=== PATIENT | female | born 1990 | race Caucasian/White ===

== ENCOUNTER 2019-05-25 10:30 | Emergency (ER) | payer MEDICAID ==
[~2019-05-25 10:30] MED LIST: HYDR-4383 PO; NO HOME MEDS; ONDA8TAB9 PO; OXYC-145 PO
[2019-05-25 10:37] VITALS: BP 140/94
[2019-05-25 11:15] LABS: CLARITY,URINE SLIGHTLY CLOUDY (Clear); COLOR,URINE STRAW (Yellow); GLUCOSE, URINE NEGATIVE (Neg); KETONES,URINE NEGATIVE (Neg); LEUKOCYTE ESTERASE ,URINE SMALL (Neg); NITRITES, URINE NEGATIVE (Neg); OCCULT BLOOD,URINE LARGE (Neg); PROTEIN,URINE NEGATIVE (Neg); UROBILINOGEN,URINE 0.2 E.U/dL (0.2-1.0)
[2019-05-25 11:21] LABS: URINE HCG NEGATIVE (NEG)
[2019-05-25 11:23] LABS: UA COLLECTION TYPE CLN CATCH MIDSTREAM
[2019-05-25 11:24] LABS: BACTERIA,URINE 1+ /HPF (Neg); RBC,URINE 20-50 /HPF (0-2); SQUAMOUS EPITHELIAL CELL,UR MODERATE /LPF (FEW); WBC,URINE 0-4 /HPF (0-4)
== END 2019-05-25 15:00 | disposition left against medical advice (07) ==
LOC: ER 10:31
DX: R10.9 Unspecified abdominal pain (principal); Z53.21 Procedure and treatment not carried out due to patient leaving prior to being seen by health care provider
CPT/HCPCS: 81001; 81025; 87088; 93005

== ENCOUNTER 2019-06-22 14:08 | Emergency (ER) | payer MEDICAID ==
[~2019-06-22] VITALS: Ht 167.6 cm; Wt 90.0 kg
[2019-06-22 14:22] VITALS: BP 148/98
[2019-06-22] MEDS ORDERED: HYDROcodone/acetaminophen 10/325mg tab PO ONE (14:40)
[2019-06-22] MEDS ORDERED: PENI500T2 PO (14:41)
== END 2019-06-22 15:09 | disposition home or self-care (01) ==
LOC: ER 14:08
DX: K02.9 Dental caries, unspecified (principal); K08.89 Other specified disorders of teeth and supporting structures; F41.9 Anxiety disorder, unspecified; G43.909 Migraine, unspecified, not intractable, without status migrainosus; Z87.442 Personal history of urinary calculi; Z56.0 Unemployment, unspecified; Z79.899 Other long term (current) drug therapy
CPT/HCPCS: 99283

== ENCOUNTER 2020-06-03 17:16 | Emergency (ER) | payer MEDICAID ==
--- NOTE | 2020-06-03 17:30 | NUR ---
PT LEFT HAROON VICK, HAS A PICC LINE AND NEEDS ABX FOR INFECTION. AFTER GETTING AN EKG, PT DECIDES TO GO TO [facility] SINCE ALL HER RECORDS ARE OVER THERE. INSTRUCT PT THAT IT IS LIFE AND THAT SHE IS SEEN AND GIVEN ABX. PT STATES HER SISTER IS OUT IN THE PARKING LOT IN HER CAR AND WILL TAKE PT OVER TO [facility] NOW.
== END 2020-06-03 18:09 | disposition left against medical advice (07) ==
LOC: ER 17:20
DX: R42 Dizziness and giddiness (principal); Z53.21 Procedure and treatment not carried out due to patient leaving prior to being seen by health care provider

== ENCOUNTER 2022-10-21 12:51 | Emergency (ER) | payer MEDICAID ==
[~2022-10-21] VITALS: Ht 162.6 cm; Wt 90.9 kg
[2022-10-21 13:49] LABS: BASOPHILS # (AUTO) 0.1 X10'3 (0-0.2); BASOPHILS % (AUTO) 0.6 % (0-1); EOSINOPHILS % (AUTO) 0.3 % (0-6); HEMATOCRIT 46.7 % (35.0-45.0); HEMOGLOBIN 15.6 g/dl (12.0-16.0); LYMPHOCYTES # (AUTO) 1.9 X10'3 (1.1-4.8); LYMPHOCYTES % (AUTO) 15.8 % (21-51); MEAN CORPUSCULAR HEMOGLOBIN 27.9 PG (27.0-31.0); MEAN CORPUSCULAR HGB CONC 33.5 g/dL (33.0-36.5); MEAN CORPUSCULAR VOLUME 83.2 FL (78-98); MEAN PLATELET VOLUME 8.9 FL (7.4-10.4); MONOCYTES # (AUTO) 0.2 X10'3 (0-0.9); MONOCYTES % (AUTO) 1.5 % (2-12); NEUTROPHILS # (AUTO) 9.6 X10'3 (1.8-7.7); NEUTROPHILS % (AUTO) 81.8 % (42-75); PLATELET COUNT 341 X10'3 (140-440); RED BLOOD COUNT 5.62 X10'6 (4.20-5.60); RED CELL DISTRIBUTION WIDTH 13.6 % (11.5-14.5); WHITE BLOOD COUNT 11.7 X10'3 (4.5-11.0)
[2022-10-21 13:50] LABS: ALANINE AMINOTRANSFERASE 33 U/L (12-78); ALBUMIN 4.6 G/DL (3.4-5.0); ALBUMIN/GLOBULIN RATIO 1.1 (1.1-1.5); ALKALINE PHOSPHATASE 83 IU/L (46-116); ANION GAP 10 (8-16); ASPARTATE AMINO TRANSFERASE 20 U/L (10-37); BILIRUBIN,TOTAL 1.1 MG/DL (0.1-1.0); BLOOD UREA NITROGEN 14 MG/DL (7-18); BUN/CREATININE RATIO 15.7 (10.0-20.0); CALCIUM 9.8 MG/DL (8.5-10.1); CHLORIDE 102 MMOL/L (99-107); CREATININE 0.89 MG/DL (0.40-0.90); GLUCOSE 129 MG/DL (70-104); POTASSIUM 3.6 MMOL/L (3.5-5.1); SODIUM 138 MMOL/L (135-145); TOTAL PROTEIN 8.9 G/DL (6.4-8.2); eGFR 73 ML/MIN
[2022-10-21] MEDS ORDERED: buprenorphine/naloxone 8mg/2mg SL tablet SL PRN (15:35)
[2022-10-21] MEDS ORDERED: ondansetron/PF 4mg/2ml inj IV ONE (15:35)
[2022-10-21] MEDS ORDERED: normal saline 1000ML IV soln IVB ONE ×2 (15:35)
[2022-10-21] MEDS ORDERED: pantoprazole 40 MG vial IV ONE (15:35)
[2022-10-21] MEDS ORDERED: pantoprazole 40 MG/NS 100ML add-vantage BAG IV ONE (15:45)
[2022-10-21] MEDS ORDERED: buprenorphine/naloxone 8MG-2MG SUBlingual film SL PRN (17:20)
[2022-10-21 18:17] VITALS: BP 128/79
--- NOTE | 2022-10-21 19:00 | NUR ---
pt side effect to suboxone "anxiety" informed. new med order recieved.
[2022-10-21] MEDS ORDERED: LORazepam 2 mg/ml vial IV ONE ×2 (19:05→20:30)
--- NOTE | 2022-10-21 20:52 | NUR ---
pt self disconnected iv fluid and removed iv cath. left wo dc inst and paperwork. informed
== END 2022-10-21 20:56 | disposition home or self-care (01) ==
LOC: ER 12:51
DX: R53.81 Other malaise (principal); F11.10 Opioid abuse, uncomplicated; G43.909 Migraine, unspecified, not intractable, without status migrainosus; F17.200 Nicotine dependence, unspecified, uncomplicated; Z88.1 Allergy status to other antibiotic agents; Z56.0 Unemployment, unspecified
CPT/HCPCS: 36415; 71045; 80053; 83880; 84484; 85025; 93005; 96361; 96365; 96375; 96376; 99285; C9113; J2060; J2405; J7030; J7040

== ENCOUNTER 2023-06-03 13:26 | Emergency (ER) | payer MEDICAID ==
[~2023-06-03] VITALS: Ht 167.6 cm; Wt 96.5 kg
[2023-06-03 13:36] VITALS: TEMP 98
[2023-06-03] MEDS ORDERED: ketorolac trometh inj. 60 MG/2 ML VIAL IM ONE (15:35)
[2023-06-03] MEDS ORDERED: HYDROcodone/acetaminophen 5mg/325mg tablet PO ONE (15:35)
[2023-06-03] MEDS ORDERED: ondansetron 4mg rapidly disintigrating tab PO ONE (15:35)
[2023-06-03 16:49] LABS: URINE HCG NEGATIVE (NEG)
[2023-06-03 16:53] LABS: CLARITY,URINE CLOUDY (Clear); COLOR,URINE ORANGE (Yellow)
[2023-06-03 17:03] LABS: URINE AMPHETAMINE SCREEN NEGATIVE (Neg); URINE BARBITUATE SCREEN NEGATIVE (Neg); URINE BENZODIAZEPINES SCREEN NEGATIVE (Neg); URINE CANNABINOID SCREEN NEGATIVE (Neg); URINE COCAINE SCREEN NEGATIVE (Neg); URINE METHADONE SCREEN POSITIVE (Neg); URINE OPIATE SCREEN NEGATIVE (Neg); URINE PHENCYCLIDINE SCREEN NEGATIVE (Neg)
[2023-06-03 17:13] LABS: BACTERIA,URINE 3+ /HPF (Neg); SQUAMOUS EPITHELIAL CELL,UR MANY /LPF (FEW); WBC,URINE TNTC /HPF (0-4)
[2023-06-03 17:14] LABS: TRANSITIONAL EPI CELLS,URINE FEW /HPF
[2023-06-03 17:16] LABS: UA COLLECTION TYPE NON-SPECIFIED
[2023-06-03 17:30] LABS: BASOPHILS # (AUTO) 0.1 X10'3 (0-0.2); BASOPHILS % (AUTO) 0.8 % (0-1); EOSINOPHILS # (AUTO) 0.2 X10'3 (0-0.9); EOSINOPHILS % (AUTO) 1.5 % (0-6); HEMATOCRIT 42.6 % (35.0-45.0); HEMOGLOBIN 14.4 g/dl (12.0-16.0); LYMPHOCYTES # (AUTO) 3.4 X10'3 (1.1-4.8); LYMPHOCYTES % (AUTO) 29.4 % (21-51); MEAN CORPUSCULAR HEMOGLOBIN 28.8 PG (27.0-31.0); MEAN CORPUSCULAR HGB CONC 33.7 g/dL (33.0-36.5); MEAN CORPUSCULAR VOLUME 85.3 FL (78-98); MEAN PLATELET VOLUME 8.6 FL (7.4-10.4); MONOCYTES # (AUTO) 0.4 X10'3 (0-0.9); MONOCYTES % (AUTO) 3.3 % (2-12); NEUTROPHILS # (AUTO) 7.6 X10'3 (1.8-7.7); PLATELET COUNT 317 X10'3 (140-440); RED CELL DISTRIBUTION WIDTH 13.3 % (11.5-14.5); WHITE BLOOD COUNT 11.7 X10'3 (4.5-11.0)
[2023-06-03 17:41] LABS: ALANINE AMINOTRANSFERASE 28 U/L (12-78); ALBUMIN 3.6 G/DL (3.4-5.0); ALBUMIN/GLOBULIN RATIO 0.9 (1.1-1.5); ALKALINE PHOSPHATASE 80 IU/L (46-116); ANION GAP 11 (8-16); ASPARTATE AMINO TRANSFERASE 16 U/L (10-37); BILIRUBIN,TOTAL 0.6 MG/DL (0.1-1.0); BLOOD UREA NITROGEN 11 MG/DL (7-18); BUN/CREATININE RATIO 14.1 (10.0-20.0); CALCIUM 8.7 MG/DL (8.5-10.1); CHLORIDE 102 MMOL/L (99-107); CREATININE 0.78 MG/DL (0.40-0.90); GLUCOSE 90 MG/DL (70-104); LIPASE 32 U/L (16-77); POTASSIUM 3.5 MMOL/L (3.5-5.1); SODIUM 137 MMOL/L (135-145); TOTAL CARBON DIOXIDE 24.3 MMOL/L (24-32); TOTAL PROTEIN 7.7 G/DL (6.4-8.2); eCRCL 95 ML/MIN; eGFR 85 ML/MIN
[2023-06-03 19:55] LABS: CLARITY,URINE CLOUDY (Clear); COLOR,URINE ORANGE (Yellow); UA COLLECTION TYPE CLN CATCH MIDSTREAM
[2023-06-03 20:09] LABS: MUCUS STRANDS MANY /LPF (Neg); SQUAMOUS EPITHELIAL CELL,UR MANY /LPF (FEW); TRANSITIONAL EPI CELLS,URINE FEW /HPF
[2023-06-03 20:10] LABS: BACTERIA,URINE 3+ /HPF (Neg); WBC,URINE TNTC /HPF (0-4)
[2023-06-03 20:11] LABS: WBC CLUMPS,URINE FEW /HPF (NEGATIVE)
[2023-06-03 22:11] LABS: CLARITY,URINE CLOUDY (Clear); COLOR,URINE ORANGE (Yellow); UA COLLECTION TYPE STRAIGHT CATH
[2023-06-03 22:12] LABS: MUCUS STRANDS MANY /LPF (Neg)
[2023-06-03 22:16] LABS: RENAL CELLS, URINE FEW /HPF; SQUAMOUS EPITHELIAL CELL,UR MANY /LPF (FEW); TRANSITIONAL EPI CELLS,URINE FEW /HPF; WBC CLUMPS,URINE FEW /HPF (NEGATIVE); WBC,URINE 20-30 /HPF (0-4)
[2023-06-03 22:19] LABS: BACTERIA,URINE 3+ /HPF (Neg)
[2023-06-03] MEDS ORDERED: CefTRIAXone 250MG inj IM ONE (22:45)
[2023-06-03] MEDS ORDERED: CEPH-585 PO (22:48)
[2023-06-03] MEDS ORDERED: CefTRIAXone 1000mg IM Kit (w/lidocaine diluent) IM ONE (22:55)
[2023-06-03 23:35] VITALS: BP 118/90; PULSE 77; RESP 16; O2SAT 100
== END 2023-06-03 23:33 | disposition home or self-care (01) ==
LOC: ER 13:27
DX: N39.0 Urinary tract infection, site not specified (principal); I11.0 Hypertensive heart disease with heart failure; F17.200 Nicotine dependence, unspecified, uncomplicated
CPT/HCPCS: 36415; 74176; 80053; 80305; 81001; 81025; 83690; 85025; 96372; 99285; J0696; J1885; A4353; C1758

== ENCOUNTER → 2023-09-03 | Emergency (ER) | payer MEDICAID ==
[~2023-09-03] VITALS: Ht 167.6 cm; Wt 90.6 kg
[~2023-09-03] MED LIST changes: +CEPH-585 PO
[2023-09-03 10:43] VITALS: BP 113/75; PULSE 86; RESP 18; TEMP 98.3; O2SAT 98
[2023-09-03 11:30] LABS: BILIRUBIN,URINE NEGATIVE (Neg); CLARITY,URINE SLIGHTLY CLOUDY (Clear); COLOR,URINE YELLOW (Yellow); GLUCOSE, URINE NEGATIVE (Neg); KETONES,URINE NEGATIVE (Neg); LEUKOCYTE ESTERASE ,URINE NEGATIVE (Neg); NITRITES, URINE NEGATIVE (Neg); OCCULT BLOOD,URINE LARGE (Neg); PROTEIN,URINE NEGATIVE (Neg)
[2023-09-03 11:30] LABS: BASOPHILS # (AUTO) 0.1 X10'3 (0-0.2); BASOPHILS % (AUTO) 1.4 % (0-1); EOSINOPHILS # (AUTO) 0.1 X10'3 (0-0.9); EOSINOPHILS % (AUTO) 1.7 % (0-6); HEMATOCRIT 39.3 % (35.0-45.0); HEMOGLOBIN 13.4 g/dl (12.0-16.0); LYMPHOCYTES # (AUTO) 1.5 X10'3 (1.1-4.8); LYMPHOCYTES % (AUTO) 24.4 % (21-51); MEAN CORPUSCULAR HEMOGLOBIN 29.2 PG (27.0-31.0); MEAN CORPUSCULAR HGB CONC 34.2 g/dL (33.0-36.5); MEAN CORPUSCULAR VOLUME 85.4 FL (78-98); MEAN PLATELET VOLUME 9.5 FL (7.4-10.4); MONOCYTES # (AUTO) 0.4 X10'3 (0-0.9); MONOCYTES % (AUTO) 6.1 % (2-12); NEUTROPHILS % (AUTO) 66.4 % (42-75); PLATELET COUNT 211 X10'3 (140-440); RED BLOOD COUNT 4.61 X10'6 (4.20-5.60); RED CELL DISTRIBUTION WIDTH 13.4 % (11.5-14.5)
[2023-09-03 11:33] LABS: UA COLLECTION TYPE CLN CATCH MIDSTREAM
[2023-09-03 11:36] LABS: RBC,URINE 50-100 /HPF (0-2); SQUAMOUS EPITHELIAL CELL,UR FEW /LPF (FEW); WBC,URINE 0-4 /HPF (0-4)
[2023-09-03 11:37] LABS: BACTERIA,URINE NONE SEEN /HPF (Neg)
== END | disposition left against medical advice (07) ==
LOC: ER 10:30
DX: O20.9 Hemorrhage in early pregnancy, unspecified (principal); O26.891 Other specified pregnancy related conditions, first trimester; R10.9 Unspecified abdominal pain; Z53.21 Procedure and treatment not carried out due to patient leaving prior to being seen by health care provider; Z3A.01 Less than 8 weeks gestation of pregnancy
CPT/HCPCS: 36415; 81001; 84702; 85025; 86870; 86885; 86900; 86901; 86905; 99281

== ENCOUNTER 2024-02-18 22:09 | Emergency (ER) | payer MEDICAID ==
[~2024-02-18] VITALS: Ht 162.6 cm; Wt 84.1 kg
[2024-02-19] MEDS: ondansetron 4mg rapidly disintigrating tab PO ONE (00:39)
[2024-02-19] MEDS: ibuprofen tablet 400 MG TABLET PO ONE (00:41)
[2024-02-19] MEDS: acetaminophen 325mg tablet PO ONE (00:41)
[2024-02-19] MEDS: HYDROcodone/acetaminophen 5mg/325mg tablet PO ONE (00:42)
[2024-02-19 03:42] VITALS: BP 141/93; PULSE 78; RESP 18; TEMP 98.1; O2SAT 100
== END 2024-02-19 03:45 | disposition home or self-care (01) ==
LOC: EEVIPCON 22:10 → ER 22:10
DX: S00.83XA Contusion of other part of head, initial encounter (principal); G43.909 Migraine, unspecified, not intractable, without status migrainosus; F41.9 Anxiety disorder, unspecified; Z88.1 Allergy status to other antibiotic agents; Z79.2 Long term (current) use of antibiotics; Z79.899 Other long term (current) drug therapy; Z87.440 Personal history of urinary (tract) infections; Y08.89XA Assault by other specified means, initial encounter; Y93.89 Activity, other specified; Y92.89 Other specified places as the place of occurrence of the external cause; Y99.8 Other external cause status
CPT/HCPCS: 70450; 70486; 71250; 72125; 74176; 93005; 99285

== ENCOUNTER 2024-05-05 09:34 | Emergency (ER) | payer MEDICAID ==
[~2024-05-05] VITALS: Ht 162.6 cm; Wt 86.7 kg
[2024-05-05 09:43] VITALS: TEMP 98.6
[2024-05-05] MEDS ORDERED: MELO-100 PO (11:11)
[2024-05-05] MEDS: ketorolac trometh 30MG/ML vial 30 MG/ML VIAL IM ONE (11:28)
[2024-05-05 12:02] VITALS: BP 116/77; PULSE 80; RESP 18; O2SAT 97
== END 2024-05-05 12:06 | disposition home or self-care (01) ==
LOC: ER 09:34
DX: G43.909 Migraine, unspecified, not intractable, without status migrainosus (principal); Z88.1 Allergy status to other antibiotic agents; Z87.440 Personal history of urinary (tract) infections
CPT/HCPCS: 96372; 99283; J1885

== ENCOUNTER 2024-09-20 07:28 | Emergency (ER) | payer MEDICAID ==
[~2024-09-20] VITALS: Ht 162.6 cm; Wt 85.3 kg
[~2024-09-20 07:28] MED LIST changes: -CEPH-585 PO; +MELO-100 PO
[2024-09-20 07:29] VITALS: TEMP 97.7
[2024-09-20] MEDS ORDERED: BETA15CR4 TOP (08:16)
--- NOTE | 2024-09-20 08:16 | Physician Documentation ---
History of Present Illness ~ General Chief Complaint: Rash Stated Complaint: "SOMETHING SPREADING ALL OVER MY BODY" Time Seen by MD: 08:01 Primary Medical Doctor: NONE History of Present Illness Initial Comments This is a pleasant 33-year-old female who comes in for evaluation of rash the cup expressed in the last month. Started on bilateral upper extremities, nonspecific today scalp, face, bilateral ears, back. No obvious trigger provocation. The particular palliating or aggravating factors were elicited with the patient. Did not attempt to treat it. Today where she noticed a spread to her face she got scared to the emergency department. This never happened past. Denies any other complaints. No new shampoo, no new detergents, no pets, no travel. No concern for tobacco, alcohol or illicit substances use. No lesions in mouth, anus, vagina. Medication Reconciliation Allergies: Coded Allergies: levofloxacin (Verified Allergy, Severe, THROAT SWELLS, 05/05/24) Scheduled Hydrocodone/Acetaminophen ([place] 5-325 Tablet), 1-2 TABLET PO Q4H Meloxicam* (Meloxicam*), 1 TAB PO DAILY Ondansetron (Zofran Odt), 1 TABLET PO Q8H Ondansetron (Zofran Odt), 1 TABLET PO Q8H Oxycodone HCl/Acetaminophen (Percocet 5-325 mg Tablet), 1 TABLET PO TID Miscellaneous Medications Home Med List (No Home Medications), (Reported) Past Medical History Past Medical History: Migraine, Endocarditis, Heart Valve Disease, Kidney Stones, UTI, Anxiety Past Surgical History: no surgical history Alcohol Use: None Drug Use: other Lives with: Spouse, Family Lives In: Home Occupation: unemployed Review of Systems ROS 10 point review of systems was performed and unless noted above in HPI is negative for acute process/complaint. Physical Exam Physical Exam Vital Signs: Temperature: 97.7, Heart Rate: 69, Respiratory Rate: 16, BP: 142/77, Pulse Oximetry: 100, Weight: 85.300 Oxygen Flow Rate: 0 Physical Exam Physical examination: GENERAL: Awake, alert, oriented, GCS 15, no apparent distress, non-toxic appearing, answers questions, follows commands appropriately. Pleasant lady examined in bed 11 HEENT: Atraumatic, normocephalic, pupils equal, extraocular muscles intact Active gross movements, sclerae anicteric, mucus membranes moist, no stridor. NECK: Midline, no JVD CARDIOVASCULAR: Good skin perfusion without evidence of pallor, mottling. PULMONARY: Nonlabored, symmetric chest rise, no audible wheezing, no accessory muscle use, no respiratory distress, speaking in full sentences. GASTROINTESTINAL: Not distended. NEUROLOGIC: Lucid with normal mental status. Normal facial symmetry. Moves all extremities symmetrically and with purpose. No truncal ataxia. Speech is fluid without evidence of dysarthria or aphasia, no focal deficits appreciated. EXTREMITIES: Acute deformities Skin: warm, dry, there are multiple small eczematous patches on her scalp, face bilateral cheeks, bilateral upper and lower extremities, back, there are blanching, no vasculitic changes, no purpura, no petechiae, no excoriations, no open wounds, no ulcerations, no bleeding or purulent discharge PSYCHIATRIC: Normal affect, normal insight, normal concentration. Focused exam: [] Progress Results/Orders Results/Orders Vital Signs 09/20/24 07:29 Temp 97.7 Pulse 69 Resp 16 B/P (MAP) 142/77 Pulse Ox 100 O2 Flow Rate 0 Medical Decision Making Findings Facility Status: ED Holds, RME process The plan was discussed with the patient, who demonstrates clear understanding of the plan and is in agreement with the plan unless otherwise noted in the chart. All questions have been answered, all concerns were addressed unless otherwise documented. I was available throughout their ED stay for frequent reassessment and questions. Differential Diagnoses (considered and possible or likely): [Eczema, psoriasis, erysipelas, impetigo, cellulitis, unlikely to be carbuncle/abscess, clinically not consistent with vasculitis, Jarod Jose Luis syndrome, TEN] ??Differential Diagnoses (considered and unlikely, not requiring evaluation currently): [See above] [facility] Data Please see HPI for the following: Independent Historians and external Records Review. Historian: [Patient] Independent Historians: ?[Non] Medication Management: [Reviewed medication list] Social History and determinants: [Reviewed] Please see the body of the note for the following: Any independent interpretations of ECG, imaging studies. All vitals signs/haemodynamics, ordered tests were independently reviewed and interpreted by myself. Nursing triage complaint and vitals reviewed, additional nursing notes were reviewed as available and I agree unless otherwise noted or documented in contradiction in the chart Vital Signs: Independently reviewed Labs: Independently interpreted Imaging: Independently interpreted Old Medical Records: Independently reviewed, see HPI for relevant summary and information Pulse Oximetry: [98%] interpreted as [normal on room air] by me Additionally notably showing: [Hemodynamically stable] Tests considered but not ordered include: [Hematologic workup and imaging has been considered but does not appear to be necessary given clinical nature of diagnosis] Social Determinants of Health Impact: Patient was evaluated in [facility] [place] access to healthcare due to below par ratio of patient to medical providers. [] Comorbid Conditions Impacting Present Evaluation and Care/Treatment: [None known] Management Discussions with other Healthcare Providers: [None] Treatment and Disposition Medication Management (Given or considered): []. See EMR for details Consideration for Hospitalization/Escalation/Deescalation of Care: Admission for observation has been considered, [however the patient is able to tolerate p.o., their symptoms are controlled, they are able to rely on oral medications, and their chief complaint/diagnosis can be managed on outpatient basis.] ?ED Course:?[No clinical deterioration. Provided patient's dictation regarding need to follow-up with the dermatology appointment] ?Shared decision making:?[Patient is hemodynamically stable for discharge home with follow with their primary care provider. [ ] Specific and cautious return precautions provided and discussed with full understanding. Any incidental findings were also discussed and follow up recommendations given. [] All questions answered. Patient/family were able to verbalize back return precautions. Patient/family agree to plan. Copies of imaging and laboratory studies were provided.] Code status:?FULL Please see the full Electronic Medical Record for full details of nursing do cumentation, medications list, other records of complete past medical history and conditions, vital signs, laboratory studies, and any radiologic study interpretations by radiologists. Portions of this note were completed using [employer] dictation software and as a result there may exist minor errors in spelling. I have reviewed elements of past family and social history and agree as included in note. Departure Disposition: 01 HOME / SELF CARE / HOMELESS Impression: Primary Impression: Rash Condition: Stable Discharge Instructions: Rash, Adult Additional Instructions: Please follow-up with the PCP and obtain referral to glass cutter helper specialist Referrals: NO PRIMARY CARE PROVIDER (PCP) Prescriptions Betamethasone Dipropionate (Betamethasone Dipropionate) 0.05 % Cream..g. 1 APPLIC TOP Q12H for 14 Days, #15 GM 0 Refills apply to affected area(s) Prov: SEVERO BUCKNER DO 09/20/24 Education Educated: Patient Educated regarding: diagnosis, treatment, prognosis, need for follow up Signature Scribe Signature: No scribe Attestation: This note accurately reflects clinical decisions, work performed by myself, DO SITA Reynolds NICHOLAS M DO September 20, 2024 08:16
[2024-09-20 08:32] VITALS: BP 127/74; PULSE 66; RESP 14; O2SAT 98
== END 2024-09-20 08:35 | disposition home or self-care (01) ==
LOC: ER 07:28
DX: R21 Rash and other nonspecific skin eruption (principal); G43.909 Migraine, unspecified, not intractable, without status migrainosus; F41.9 Anxiety disorder, unspecified; Z88.1 Allergy status to other antibiotic agents; Z79.899 Other long term (current) drug therapy; Z87.442 Personal history of urinary calculi; Z56.0 Unemployment, unspecified
CPT/HCPCS: 99283

== ENCOUNTER 2025-02-27 06:18 | Emergency (ER) | payer MEDICAID ==
[~2025-02-27] VITALS: Ht 162.6 cm; Wt 84.5 kg
[~2025-02-27 06:18] MED LIST changes: +BETA15CR4 TOP
--- NOTE | 2025-02-27 06:40 | Physician Documentation ---
History of Present Illness Chief Complaint: Flank Pain Stated Complaint: GENERAL Time Seen by MD: 06:32 Primary Medical Doctor: NONE Source: patient (8) HPI Patient comes to the emergency department for evaluation of right-sided flank pain. She has a history of both pyelonephritis and kidney stones, reports that she had gradual onset of right-sided posterior flank pain three days ago which became worse over time, radiating to the front. This has been accompanied by nausea, but no vomiting or fever. She denies dysuria but has urgency and frequency and some hematuria. She states that it feels more like kidney stones then pyelo to her. Medication Reconciliation Allergies: Coded Allergies: levofloxacin (Verified Allergy, Severe, THROAT SWELLS, 02/27/25) morphine (Verified Allergy, Unknown, rash, 02/27/25) Scheduled Betamethasone Dipropionate (Betamethasone Dipropionate), 1 APPLIC TOP Q12H Hydrocodone/Acetaminophen ([place] 5-325 Tablet), 1-2 TABLET PO Q4H Meloxicam* (Meloxicam*), 1 TAB PO DAILY Ondansetron (Zofran Odt), 1 TABLET PO Q8H Ondansetron (Zofran Odt), 1 TABLET PO Q8H Oxycodone HCl/Acetaminophen (Percocet 5-325 mg Tablet), 1 TABLET PO TID Miscellaneous Medications Home Med List (No Home Medications), (Reported) Past Medical History Past Medical History: Migraine, Endocarditis, Heart Valve Disease, Kidney Stones, UTI, Anxiety Past Surgical History: no surgical history Smoking Status: Current every day smoker Alcohol Use: None Drug Use: none (Sober) Lives with: Spouse, Family Lives In: Home Occupation: unemployed Review of Systems All Other Systems at this time: Reviewed and Negative (Other than a few scattered skin lesions over the past few) Physical Exam Vital Signs: Temperature: 97.0, Source: Temporal, Heart Rate: 86, Respiratory Rate: 20, BP: 149/91, Pulse Oximetry: 99, Weight: 84.500 Oxygen Flow Rate: 0 Physical Exam General: Pt is awake, alert, oriented x4 in mild distress and well appearing. Head: Normocephalic and atraumatic. Eyes: Conjunctiva normal. ENT: Mucous membranes moist. Neck: Supple. Chest: Clear to auscultation bilaterally, without rales, rhonchi, or wheezes. There is no accessory muscle use or retractions. Cardiac: Regular rate and rhythm without murmurs, gallops or rubs. Palpation of the chest wall is normal. Abd: Soft, nondistended, mildly tender in epigastrium/RUQ/RLQ, with normoactive bowel sounds. No guarding or rebound. Back: Pt has tenderness to light palpation over the right and left paraspinal musculature over CVA area down to the lumbar area. Questionable R CVA tenderness to percussion Extremities: Within normal limits without cyanosis, clubbing, or edema. Skin: [place], warm and dry with no significant rash appreciated. Neuro: Cranial nerves II-XII grossly intact. The gait is normal. Progress Results/Orders Results/Orders Orders - BAYRON ROMAN MD Urinalysis, Cult If Indicated (02/27/25 06:31) Vital Signs 02/27/25 06:25 Temp 97.0 Pulse 86 Resp 20 B/P (MAP) 149/91 Pulse Ox 99 O2 Flow Rate 0 Medical Decision Making Additional Comments Patient presenting with flank pain, concern for cystitis versus nephrolithiasis. However, on examination she has quite a lot of muscular tenderness throughout, and this may be a musculoskeletal etiology. Her urinalysis was rejected for culture, but has few bacteria even on a sample with a large amount of squamous epithelial cells, making UTI less likely. However, patient has urgency and hematuria, therefore will be treated for urinary tract infection and another culture will be attempted before she leaves. Interstitial cystitis also a possibility. No evidence for obstructive uropathy. Patient is stable, no evidence for pyelonephritis, no . She will be discharged with antibiotics, she is encouraged to follow up with a clinic or PMD for recheck, understands to return to the emergency department for any worsening of her symptoms or other concerns. Departure Time of Disposition: 09:12 Disposition: HOME / SELF CARE / HOMELESS Impression: Primary Impression: Flank pain Qualified Codes: R10.A0 - Flank pain, unspecified side Condition: Stable Discharge Instructions: Flank Pain, Adult Additional Instructions: There is no evidence for obstructing kidney stones on ultrasound, and your urinalysis is equivocal; another specimen has been sent to see if the culture can be obtained. I am going to go ahead and treat you for a presumed urinary tract infection given your symptoms. It would be diaz to set up follow-up this week at an urgent care for recheck, and to look up your culture results. You can continue Tylenol and ibuprofen, please take the antibiotics as prescribed. Return to the emergency department if fever, vomiting, increasing pain or blood in the urine, or any other concerns. Referrals: NO PRIMARY CARE PROVIDER (PCP) Prescriptions Sulfamethoxazole/Trimethoprim (Bactrim Ds Tablet) 800 Mg-160 Mg Tablet 1 TAB PO Q12H for 7 Days, #14 TAB Prov: BAYRON ROMAN MD 02/27/25 Education Educated: Patient Educated regarding: diagnosis, treatment Signature Scribe Signature: Attestation: BAYRON ROMAN MD Feb 27, 2025 06:40
[2025-02-27 06:58] LABS: UA COLLECTION TYPE CLN CATCH MIDSTREAM
[2025-02-27 07:02] LABS: MUCUS STRANDS FEW /LPF (Neg); SQUAMOUS EPITHELIAL CELL,UR MANY /LPF (FEW)
[2025-02-27] MEDS: ondansetron/PF 4mg/2ml inj IV ONE (07:14)
[2025-02-27] MEDS: ketorolac trometh 15mg/ml vial 15 MG/ML ML IV ONE (07:15)
[2025-02-27] MEDS: morphine 4 MG/ML inj SYRINge IV PRN (07:16)
[2025-02-27] MEDS: normal saline 1000ML IV soln IVB ONE (07:17)
[2025-02-27 07:20] LABS: CREATININE 0.79 MG/DL (0.40-0.90); TOTAL CARBON DIOXIDE 31.2 MMOL/L (24-32); eCRCL 85 ML/MIN; eGFR 82 ML/MIN
[2025-02-27 07:25] LABS: MEAN PLATELET VOLUME 9.6 FL (7.4-10.4); RED CELL DISTRIBUTION WIDTH 14.1 % (11.5-14.5)
[2025-02-27 07:35] LABS: HCG SERUM QL NEGATIVE
--- NOTE | 2025-02-27 08:18 | RADIOLOGY REPORT ---
CLINICAL INFORMATION: Rule out obstructive uropathy. TECHNIQUE: Grayscale sonographic imaging of the kidneys was performed, assisted by color Doppler technique. COMPARISON: None FINDINGS: The right kidney measures 11.5 cm in length. No hydronephrosis. Unremarkable cortical thickness and echogenicity. The left kidney measures 10.6 cm in length. No hydronephrosis. Unremarkable cortical thickness and echogenicity. IMPRESSION: No hydronephrosis. Otherwise unremarkable sonographic appearance of both kidneys.
[2025-02-27] MEDS ORDERED: SULF1TAB49 PO (09:15)
[2025-02-27 09:24] VITALS: BP 146/92; PULSE 74; RESP 18; TEMP 98; O2SAT 98
== END 2025-02-27 09:25 | disposition home or self-care (01) ==
LOC: ER 06:19
DX: R10.13 Epigastric pain (principal); F17.200 Nicotine dependence, unspecified, uncomplicated; G43.909 Migraine, unspecified, not intractable, without status migrainosus; F41.9 Anxiety disorder, unspecified; Z87.440 Personal history of urinary (tract) infections; Z87.442 Personal history of urinary calculi; Z88.5 Allergy status to narcotic agent; Z88.1 Allergy status to other antibiotic agents; Z79.899 Other long term (current) drug therapy; Z56.0 Unemployment, unspecified
CPT/HCPCS: 36415; 76770; 80048; 81001; 83690; 84703; 85025; 87088; 96361; 96374; 96375; 99285; J1200; J1885; J2270; J2405; J7030